=== PATIENT | female | born 1965 | race Caucasian/White ===

== ENCOUNTER 2018-09-20 12:43 | Emergency (ER) | payer OTHER ==
[~2018-09-20] VITALS: Wt 60.0 kg
[~2018-09-20 12:43] MED LIST: BENA20TA4 PO; CITA10TA5 PO; GABA300C16 PO; GLIP5TAB13 PO; HYDR-3601 PO; LANT3I SC; METF100010 PO; PANT40TA3 PO; SIMV20TA PO; SITA100T11 PO
[2018-09-20] MEDS ORDERED: SOD CHLORIDE 0.9% 600 ML IV ONE (15:00)
[2018-09-20] MEDS ORDERED: INSULIN LISPRO 100 UNIT/ML VIAL SC STA ×2 (15:29→18:06)
[2018-09-20] MEDS ORDERED: INSULIN REGULAR 10 ML INJ IV STA (15:29)
[2018-09-20] MEDS ORDERED: INSULIN REGULAR, HUMAN 100 UNIT/1 ML 3ML VIAL IV STA (15:39)
--- NOTE | 2018-09-20 18:28 | ERD ---
ER Documentation Chief Complaint Chief Complaint HYPERGLYCEMIA SENT BY FOR ACCUCHECK 422 HPI This is a very pleasant 51-year-old female presents to the emergency department complaining of elevated blood glucose and polydipsia. The patient indicates she has been noncompliant with all of her diabetic medication for the past 4 months. The patient indicates she has not been compliant with her medications as she did not feel symptomatic. 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 She had gone to his office and he refilled all of her medications. However he stated that she needs to go to the emergency depart ment to be further evaluated as her blood glucose was 422 with an Accu-Chek in his office. The patient states she has had no headache. She has no chest pain. She is currently on antibiotics for urinary tract infection however she denies any frequency urgency or dysuria. She states she had polydipsia for several months. She has no shortness of breath. ROS All systems reviewed and are negative except as per history of present illness. Medications Home Meds Active Scripts Insulin Glargine* (Lantus*) 100 Unit/Ml Soln, 40 UNIT SC QHS for 30 Days, VIAL Prov:ELEONORASINDY 09/19/17 Sitagliptin* (Januvia*) 100 Mg Tablet, 100 MG PO DAILY for 30 Days, #30 TAB Prov:SINDY CREWS 09/19/17 Hydrocodone Bit-Acetaminophen (Hydrocodone Bit-APAP) 5-325MG Tablet, 1 TAB PO Q6H PRN for PAIN, #30 TAB Prov:SINDY CREWS 09/19/17 Reported Medications Citalopram Hydrobromide* (Citalopram Hydrobromide*) 10 Mg Tablet, 10 MG PO DAILY, #30 TAB 09/17/17 Insulin Glargine* (Lantus*) 100 Unit/Ml Soln, 35 UNIT SC QAM, #1 VIAL 08/17/17 Glipizide* (Glipizide*) 5 Mg Tablet, 5 MG PO AC BREAKFAST, TAB 08/17/17 Gabapentin* (Gabapentin*) 300 Mg Capsule, 300 MG PO QHS, #60 CAP 08/17/17 Simvastatin* (Zocor*) 20 Mg Tablet, 20 MG PO QHS, #30 TAB 08/17/17 Benazepril Hcl* (Benazepril Hcl*) 20 Mg Tablet, 20 MG PO DAILY, #30 TAB 08/17/17 Metformin Hcl* (Metformin Hcl*) 1,000 Mg Tablet, 1000 MG PO WITH BREAKFAST DINNE, #30 TAB 08/17/17 Pantoprazole* (Protonix*) 40 Mg Tablet.dr, 40 MG PO AC BREAKFAST, TAB 08/17/17 Allergies Allergies: Coded Allergies: No Known Allergies (Verified Allergy, Unknown, 09/17/17) PMhx/Soc History of Surgery: Yes (TUBAL LIGATIOMN, HYSTERECTOMY, LAP APPY) Anesthesia Reaction: No Hx Neurological Disorder: No Hx Respiratory Disorders: No Hx Cardiac Disorders: Yes (HTN, HLD) Hx Psychiatric Problems: No Hx Miscellaneous Medical Probl: No Hx Alcohol Use: No Hx Substance Use: No Hx Tobacco Use: No Smoking Status: Never smoker Physical Exam Vitals Vital Signs Date Temp Pulse Resp B/P (MAP) Pulse Ox O2 O2 Flow FiO2 Time Delivery Rate 09/20/18 98.0 88 16 118/68 99 Room Air 18:18 (85) 09/20/18 98.0 99 16 168/98 99 Room Air 17:02 (121) 09/20/18 98.0 103 18 173/99 99 15:03 (123) 09/20/18 98.0 104 18 130/66 99 12:56 (87) Physical Exam Constitutional:Well-developed. Well-nourished. HEENT:Normocephalic. Atraumatic.Pupils were equal round reactive to light. Moist mucous membranes.No tonsillar exudates. Neck: No nuchal rigidity. No lymphadenopathy. No posterior cervical spine tenderness or step-offs. Respiratory: Not using accessory muscles of respiration.Lungs were clear to auscultation bilaterally. No rhonchi. No rales. No wheezing. Cardiovascular: Regular rate regular rhythm.No murmurs. No rubs were appreciated.S1, S2 normal. Distal pulses are palpable 2+ bilaterally. GI: Abdomen was soft. Nontender. Non Distended. No pulsatile abdominal masses or bruits. No rebound. No guarding. Bowel sounds were present and normal. Muscle skeletal: Full range of motion of both the upper and lower extremities bilaterally.Normal muscle tone.No assymetrical calf tenderness or swelling. Skin: No petechia, no purpura. No lesions on the palms or the soles of the feet. No maculopapular rash. NEURO: Patient was alert, awake, orientated x3.No facial droop. Gait observed and normal with no ataxia.Speech had regular rate and rhythm. No focal neurological deficits. Result Diagram: 09/20/18 1505 09/20/18 1505 Results 24 hrs Laboratory Tests Test 09/20/18 14:38 09/20/18 14:52 09/20/18 15:05 09/20/18 16:00 Blood Gas Blood venous Specimen Source Arterial Blood 09/20/2018 3:00:06 Date Drawn PM Arterial Blood VENOUS LINE Gas Puncture Site Joel Test N/A Venous Blood pH 7.396 Venous Blood pCO2 40.7 mmHG (Temp Corrected) Venous Blood pO2 40.8 mmHG (Temp Corrected) Venous Blood HCO3 24.4 mmol/L Venous Blood 77.3 mmHG Oxygen Saturation Venous Blood Base -0.4 mmol/L Excess Venous Blood 11.5 g/dl Total Hemoglobin Venous Blood 76.8 % Oxyhemoglobin Venous Blood 0.3 % Methemoglobin Carboxyhemoglobin 0.3 % Blood Gas 37.0 C Temperature Blood Gas ROOM AIR Modality FiO2 21.0 % Blood Gas M.DJak Notified Whom Blood Gas 09/20/2018 3:09:36 Notified Time PM Bedside Glucose > 595 mg/dL 508 mg/dL White Blood Count 7.8 10^3/ul Red Blood Count 4.95 10^6/ul Hemoglobin 13.4 g/dl Hematocrit 38.7 % Mean Corpuscular 78.2 fl Volume Mean Corpuscular 27.1 pg Hemoglobin Mean Corpuscular 34.6 g/dl Hemoglobin Concen t Red Cell 12.7 % Distribution Width Platelet Count 311 10^3/UL Mean Platelet 10.5 fl Volume Immature 0.300 % Granulocytes % Neutrophils % 49.6 % Lymphocytes % 42.4 % Monocytes % 6.7 % Eosinophils % 0.4 % Basophils % 0.6 % Nucleated Red 0.0 /100WBC Blood Cells % Immature 0.020 10^3/ul Granulocytes # Neutrophils # 3.9 10^3/ul Lymphocytes # 3.3 10^3/ul Monocytes # 0.5 10^3/ul Eosinophils # 0.0 10^3/ul Basophils # 0.1 10^3/ul Nucleated Red 0.0 10^3/ul Blood Cells # Prothrombin Time 11.2 Sec Prothrombin Time 0.9 Ratio INR International 0.80 Normalized Ratio Activated 22.2 Sec Partial Thrombopl ast Time Sodium Level 130 mmol/L Potassium Level 3.8 mmol/L Chloride Level 90 mmol/L Carbon Dioxide 30 mmol/L Level Anion Gap 10 Blood Urea 15 mg/dl Nitrogen Creatinine 0.55 mg/dl Est Glomerular > 60 mL/min Filtrat Rate mL/min Glucose Level 635 mg/dl Calcium Level 8.5 mg/dl Phosphorus Level 3.9 mg/dl Magnesium Level 1.6 mg/dl Total Bilirubin 0.5 mg/dl Direct Bilirubin 0.00 mg/dl Indirect 0.5 mg/dl Bilirubin Aspartate Amino 23 IU/L Transf (AST/SGOT) Alanine 23 IU/L Aminotransferase (ALT/SGPT) Alkaline 138 IU/L Phosphatase Troponin I < 0.010 ng/ml Total Protein 6.4 g/dl Albumin 3.5 g/dl Globulin 2.90 g/dl Albumin/Globulin 1.20 Ratio Test 09/20/18 16:57 09/20/18 17:05 09/20/18 18:13 Urine Color STRAW Urine Clarity CLEAR Urine pH 6.0 Urine Specific 1.022 [place] Urine Ketones TRACE mg/dL Urine Nitrite NEGATIVE mg/dL Urine Bilirubin NEGATIVE mg/dL Urine NEGATIVE mg/dL Urobilinogen Urine Leukocyte NEGATIVE Arnulfo/ul Esterase Urine Microscopic 1 /HPF RBC Urine Microscopic 4 /HPF WBC Urine Squamous FEW /HPF Epithelial Cells Urine Bacteria FEW /HPF Urine Hemoglobin NEGATIVE mg/dL Urine Glucose 3+ mg/dL Urine Total 1+ mg/dl Protein Bedside Glucose 413 mg/dL 241 mg/dL Current Medications Medications Dose Sig/Tamika Start Time Status Last (Trade) Ordered Route PRN Stop Time Admin Dose Reason Admin Sodium 600 ml @ ONCE ONCE 09/20/18 DC 09/20/18 Chloride 600 mls/hr IV 15:00 09/20/18 15:09 15:59 Insulin 10 unit ONCE STAT 09/20/18 DC 09/20/18 Human SC 15:29 09/20/18 16:03 Lispro 15:32 (Humalog) Insulin 5 unit ONCE STAT 09/20/18 Cancel Human IV 15:29 09/20/18 Regular 15:30 (Novolin-R) Insulin 5 unit ONCE STAT 09/20/18 DC 09/20/18 Human IV 15:39 09/20/18 16:05 Regular 15:40 (Humulin R) Insulin 5 unit ONCE STAT 09/20/18 Cancel Human SC 18:06 09/20/18 Lispro 18:07 (Humalog) Procedures/MDM This is a very pleasant 53-year-old female. She presented to the emergency department hyperglycemia. The patient had no ketosis. She received IV fluids to improve her blood glucose. She also received IV insulin and subcutaneous insulin. The patient states she felt comfortable being discharged home as she does have a prescription of all of her medications given to her today by her primary care physician which include Humalog Lantus glyberide and Januvia. Venous blood gas showed no evidence of acidosis. The patient was discharged home in fair condition. They were instructed to return to the emergency department at any time if there was any worsening of their condition. The patient stated they would follow up with their PCP in the next 24-48 hours to initiate a suitable medication regimen under the care of their PCP as well as to allow their PCP to monitor any drug reactions. The patient was discharged home with prescriptions after they gave informed consent to the new medication. They were also fully informed by myself on the adverse effects and adverse drug interactions in order to provide adequate safeguards to prevent possible adverse reactions to medications. Departure Diagnosis: Primary Impression: Hyperglycemia without ketosis Condition: Fair Patient Instructions: Hyperglycemia (High Blood Sugar) REZA KUHN MD Sep 20, 2018 18:28
[2018-09-20 18:35] VITALS: BP 110/78; PULSE 90; RESP 16
== END 2018-09-20 18:35 | disposition home or self-care (01) ==
LOC: E/R 12:43
DX: E11.65 Type 2 diabetes mellitus with hyperglycemia (principal); I10 Essential (primary) hypertension; Z79.4 Long term (current) use of insulin
CPT/HCPCS: 36415; 80053; 81001; 82803; 82962; 83735; 84100; 84484; 85025; 85610; 85730; 96372; 96374; J1815; Z7502; Z7610